=== PATIENT | female | born 1975 | race Two or more races ===

== ENCOUNTER 2016-06-08 12:51 | Emergency (ER) | payer SELFPAY ==
[2016-06-08 13:08] VITALS: BP 131/80; PULSE 77; TEMP 98.5; BMI 30.7
--- NOTE | 2016-06-08 14:35 | PDOC ---
History of Present Illness - General Chief Complaint: Laceration Stated Complaint: LACERATION Time Seen by Provider: 06/08/16 13:42 History Source: Patient Exam Limitations: No Limitations - History of Present Illness Initial Comments: CHIEF COMPLAINT: 40 y/o afebrile female with no significant PMH c/o right face pain after sustaining a trauma at work today. HISTORY OF PRESENT ILLNESS: The patient states she was accidentally hit in the face with a metal object at work today. She sustained a small cut to the right side of her face. She denies LOC, ROQUE, neck pain, dizziness, changes in vision/ hearing, n/v/d, Cp, SOB, and all other symptoms. She states she is not up to date on tetanus. She also states she cleaned the area with the cut with soap and water. Vital signs on arrival are within normal limits. REVIEW OF SYSTEMS: GENERAL/CONSTITUTIONAL: No fever/chills. No weakness. No weight change. HEAD, EYES, EARS, NOSE AND THROAT: No change in vision. No ear pain or discharge. No sore throat. SKIN: No rash or easy bruising. cut to right side of face. NEUROLOGIC: No headache, vertigo, loss of consciousness, or loss of sensation. PHYSICAL EXAM: GENERAL: The patient is awake, alert, and fully oriented, in no acute distress. She is well appearing and ambulatory. HEAD: Normal with no signs of trauma. No hematomas. FACE: Minimal swelling lateral to right eye with 0.5cm linear abrasion with closed margins and no active bleeding. NECK: No midline cervical spine TTP or step offs. Full flexion and extension of neck without pain. EYES: Pupils equal, round and reactive to light, extraocular movements intact, sclera anicteric, conjunctiva clear. No nystagmus. No ptosis or proptosis. No orbital swelling. No TTP or crepitus to orbits. EXTREMITIES: Normal range of motion, no edema. NEUROLOGICAL: Normal speech, normal gait. Normal finger to nose. Normal rapid alternating movements. A&O x 3. SKIN: Warm, Dry, normal turgor, no rashes or lesions noted. Past History - Past Medical History Allergies/Adverse Reactions: Allergies Allergy/AdvReac Type Severity Reaction Status Date / Time latex Allergy Verified 06/08/16 13:05 Home Medications: Ambulatory Orders NK [No Known Home Medication] 06/08/16 Asthma: Yes - Surgical History Abdominal Surgery: (TUBAL LIGATION,HERNIA REAPR X2,LAP BAND) Cholecystectomy: Yes - Psycho/Social/Smoking Cessation Hx Suicidal Ideation: No Smoking History: Current some day smoker Number of Cigarettes Smoked Daily: 0 Information on smoking cessation initiated: No Hx Alcohol Use: No Drug/Substance Use Hx: No *Physical Exam - Vital Signs Last Vital Signs Temp Pulse Resp BP Pulse Ox 98.5 F 77 16 131/80 100 06/08/16 13:06 06/08/16 13:06 06/08/16 13:06 06/08/16 13:06 06/08/16 13:06 Medical Decision Making - Medical Decision Making A/P: 40 y/o female with abrasion to right face after work accident. Plan is as follows: 1. PO tylenol 2. tetanus Suggested the patient continue taking tylenol or motrin for pain at home. Suggested she apply ice to the affected area, follow up with her doctor and return to the ER with any worsening or concerning symptoms The patient verbalizes understanding of all instructions, has no further questions and is awaiting discharge. *DC/Admit/Observation/Transfer Diagnosis at time of Disposition: Facial trauma Qualifiers: Encounter type: initial encounter Qualified Code(s): S09.93XA - Unspecified injury of face, initial encounter - Discharge Dispostion Disposition: HOME Condition at time of disposition: Good - Patient Instructions Printed Discharge Instructions: DI for Closed Head Injury Additional Instructions: Discharge Instructions: -You received a tetanus shot today; it is good for 10 years -Take tylenol or motrin for pain if needed -Apply ice to the affected are for swelling -Return to the ER immediately with any worsening or concerning symptoms Print Language: GUINEAN - Post Discharge Activity Work/School Note: Back to Work
[2016-06-08] MEDS ORDERED: TETANUS AND DIPHTHERIA TOXOID 0.5 ML DISP.SYRIN IM ONE (14:49)
[2016-06-08] MEDS ORDERED: ACETAMINOPHEN 325 MG TABLET (FP) PO ONE (14:49)
[2016-06-08] MEDS ORDERED: ACETAMINOPHEN 325 MG TABLET (FP) ONE (14:50)
[2016-06-08] MEDS ORDERED: DIPHTH,PERTUSS(ACELL),TET 0.5 ML DISP.SYRIN IM ONE (14:59)
== END 2016-06-08 15:16 | disposition home or self-care (01) ==
LOC: JERFT 12:51
PROC: 3E0234Z Introduction of Serum, Toxoid and Vaccine into Muscle, Percutaneous Approach (ICD-10-PCS; principal; 2016-06-08)
DX: S00.81XA Abrasion of other part of head, initial encounter (principal); W22.8XXA Striking against or struck by other objects, initial encounter; Y93.89 Activity, other specified; Y92.511 Restaurant or cafe as the place of occurrence of the external cause; Y99.0 Civilian activity done for income or pay
CPT/HCPCS: 90715; 99281-25

== ENCOUNTER 2016-10-31 07:57 | Emergency (ER) | payer OTHER ==
[2016-10-31 08:03] VITALS: BP 153/90; PULSE 74; TEMP 98.4; BMI 30.5
[2016-10-31] MEDS ORDERED: ACETAMINOPHEN 500 MG TABLET (FP) PO ONE (08:36)
[2016-10-31] MEDS ORDERED: ACETAMINOPHEN 500 MG TABLET (FP) ONE (08:41)
--- NOTE | 2016-10-31 08:49 | PDOC ---
History of Present Illness - General Chief Complaint: Pain Stated Complaint: PAIN TO FACE AND EAR Time Seen by Provider: 10/31/16 08:30 History Source: Patient Exam Limitations: No Limitations - History of Present Illness Initial Comments: 10/31/16 08:52 My chief complaint: Left ear pain left nasal congestion, with postnasal drip and left-sided sore throat History of present illness: Patient is a 41-year-old female with a history of asthma and migraines here today complaining of left-sided ear pain and sore throat and left-sided nasal congestion with postnasal drip for the last 3-4 days. Patient denies any fever. Patient denies any difficulty swallowing or breathing. Patient denies any recent travel. Patient reports being around others that have had upper respiratory infections. Timing/Duration: intermittent Severity: moderate Associated Symptoms: reports: other (left ear, nasal congestion, sore throat left sided, post nasal drip) Past History - Past Medical History Allergies/Adverse Reactions: Allergies Allergy/AdvReac Type Severity Reaction Status Date / Time latex Allergy Verified 10/31/16 08:00 Home Medications: Ambulatory Orders Fexofenadine HCl [Faviola Allergy] 180 mg PO DAILY #7 tablet 10/31/16 Fluticasone Prop 0.05% Nasal [Flonase -] 2 spray NS DAILY #1 spray.pump Asthma: Yes Other medical history: migraines - Surgical History Abdominal Surgery: (TUBAL LIGATION,HERNIA REAPR X2,LAP BAND) Cholecystectomy: Yes - Suicide/Smoking/Psychosocial Hx Anxiety: No Suicidal Ideation: No Smoking History: Never smoked Have you smoked in the past 12 months: No Number of Cigarettes Smoked Daily: 0 Information on smoking cessation initiated: No Hx Alcohol Use: No Drug/Substance Use Hx: No Substance Use Type: None Review of Systems - Review of Systems Able to Perform ROS?: Yes Constitutional: No: Symptoms Reported HEENTM: Yes: Ear Pain (left sided n), Nose Congestion (with post nasal drip), Throat Pain (left sided ) Respiratory: No: Symptoms reported Cardiac (ROS): No: Symptoms Reported ABD/GI: No: Symptoms Reported Musculoskeletal: No: Symptoms Reported Integumentary: No: Symptoms Reported *Physical Exam - Vital Signs Last Vital Signs Temp Pulse Resp BP Pulse Ox 98.4 F 74 18 153/90 100 10/31/16 08:00 10/31/16 08:00 10/31/16 08:00 10/31/16 08:00 10/31/16 08:00 - Physical Exam General Appearance: Yes: Appropriately Dressed HEENT: positive: TMs Normal, Pharyngeal Erythema, Tonsillar Erythema (with no uvular deviation ), Nasal Congestion. negative: Tonsillar Exudate, Rhinorrhea, Sinus Tenderness Neck: positive: Lymphadenopathy (L). negative: Lymphadenopathy (R) Respiratory/Chest: positive: Lungs Clear, Normal Breath Sounds. negative: Chest Tender, Respiratory Distress Cardiovascular: positive: Regular Rhythm, Regular Rate, S1, S2 Integumentary: positive: Normal Color Neurologic: positive: Alert, Normal Response, Responsive ED Treatment Course - Medications Given in the ED: ED Medications Discontinued Medications Generic Name Dose Route Start Last Admin Trade Name Freq PRN Reason Stop Dose Admin Acetaminophen 1,000 mg 10/31/16 08:36 10/31/16 08:44 Tylenol - PO 10/31/16 08:37 1,000 mg ONCE ONE Administration Medical Decision Making - Medical Decision Making 10/31/16 08:55 Patient is a 41-year-old female with a history of asthma and migraines here today complaining of left-sided ear pain and sore throat and left-sided nasal congestion with postnasal drip for the last 3-4 days. Patient denies any fever. Patient denies any difficulty swallowing or breathing. Patient denies any recent travel. Patient reports being around others that have had upper respiratory infections. rule out strep throat pharyngitis or tonsillitis Nasal congestion with post nasal drip Plan: Throat C&S negative Acetaminophen 1000 mg po now faviola 180 mg po daily for 7 days flonase 2 srays left nostril daily 10/31/16 09:24 10/31/16 10:02 *DC/Admit/Observation/Transfer Diagnosis at time of Disposition: Post-nasal drip, Nasal congestion Pharyngitis Qualifiers: Pharyngitis/tonsillitis etiology: unspecified etiology Qualified Code(s): J02.9 - Acute pharyngitis, unspecified - Discharge Dispostion Disposition: HOME Condition at time of disposition: Stable - Prescriptions Prescriptions: Fexofenadine HCl [Faviola Allergy] 180 mg PO DAILY #7 tablet - Patient Instructions Additional Instructions: Drink A lot a fluids and rest Follow-up with your primary care provider within the next few days Take acetaminophen or ibuprofen as needed as directed by pricing supervisor for pain Return to emergency room if symptoms worsen or new symptoms develop Patient voiced understanding of discharge instructions and all questions were answered And thank you for choosing [facility] for your medical needs
== END 2016-10-31 10:10 | disposition home or self-care (01) ==
LOC: JERFT 07:57
DX: J02.9 Acute pharyngitis, unspecified (principal)
CPT/HCPCS: 87070; 87430; 99281-25

== ENCOUNTER 2016-11-25 21:56 | Emergency (ER) | payer SELFPAY ==
[2016-11-25 22:21] VITALS: TEMP 98.5; BMI 31.5
[2016-11-26 03:11] LABS: URINE APPEARANCE SLCLOUDY; URINE BILIRUBIN NEGATIVE (NEGATIVE); URINE BLOOD 2+ (NEGATIVE); URINE COLOR YELLOW; URINE GLUCOSE (UA) NEGATIVE (NEGATIVE); URINE KETONE TRACE (NEGATIVE); URINE NITRITE NEGATIVE (NEGATIVE); URINE PROTEIN NEGATIVE (NEGATIVE); URINE UROBILINOGEN NEGATIVE mg/dL (0.2-1.0)
[2016-11-26 03:18] LABS: URINE MUCUS RARE; URINE RBC 43 /hpf (0-3)
--- NOTE | 2016-11-26 03:21 | PDOC ---
History of Present Illness - General Chief Complaint: Pain, Acute Stated Complaint: PAIN Time Seen by Provider: 11/26/16 02:03 - History of Present Illness Initial Comments: 11/26/16 03:15 CHIEF COMPLAINT: flank pain HISTORY OF PRESENT ILLNESS: 41 year old female with PMH of kidney stones, asthma and migraines presents with right flank and stomach pain x 1 day. Reports associated urinary frequency and urgency, nausea and one episode of dry heaving. Reports she took ibuprofen at around 19:00 today without relief. LMP . Denies fever, chills, burning on urination, diarrhea, and history of UTIs PAST MEDICAL HISTORY: Asthma and migraine headaches FAMILY HISTORY: Denies SURGICAL HISTORY: Denies ALLERGIES: Seasonal allergies. No known drug allergies REVIEW OF SYSTEMS General/Constitutional: Denies fever or chills. Denies weakness, weight change. Cardiovascular: Denies chest pain or shortness of breath. Respiratory: Denies cough, wheezing, or hemoptysis. Gastrointestinal: Reports nausea and one episode of dry heaving. Denies diarrhea or constipation. Denies rectal bleeding. Genitourinary: Reports urinary frequency and urgency. Denies dysuria. Musculoskeletal: Reports right flank pain. Denies joint or muscle swelling or pain. Denies neck pain. Allergic/Immunologic: Denies hives or skin allergy. Denies latex allergy. PHYSICAL EXAM General Appearance: Patient grimaces upon movement, moves slowly. Is appropriately dressed. No apparent intoxication. Respiratory/Chest: Lungs CTAB. No shortness of breath, chest tenderness, respiratory distress, accessory muscle use. No crackles, rales, rhonchi, stridor , wheezing, dullness Cardiovascular: RRR. S1, S2. No JVD, murmur, bradycardia, tachycardia. Gastrointestinal/Abdominal: Suprapubic tenderness. Normal bowel sounds. Abdomen soft, non-distended. No rebound tenderness. No organomegaly, pulsatile mass, guarding, hernia, hepatomegaly, splenomegaly. Musculoskeletal/Extremities: Right CVA tenderness. Normal inspection. FROM of all extremities, normal capillary refill. Pelvis Stable. No tenderness to extremities, pedal edema, swelling, erythema or deformity. Integumentary: Appropriate color, dry, warm. No cyanosis, erythema, jaundice or rash Neurologic: Fully oriented, alert. Appropriate mood/affect. Motor strength 5/5. Past History - Past Medical History Allergies/Adverse Reactions: Allergies Allergy/AdvReac Type Severity Reaction Status Date / Time latex Allergy Verified 11/25/16 22:17 Home Medications: Ambulatory Orders Fexofenadine HCl [Faviola Allergy] 180 mg PO DAILY #7 tablet 10/31/16 Fluticasone Prop 0.05% Nasal [Flonase -] 2 spray NS DAILY #1 spray.pump Tamsulosin HCl [Flomax] 0.4 mg PO DAILY #14 capsule 11/26/16 Asthma: Yes Other medical history: Migraines, kidney stones - Surgical History Abdominal Surgery: (TUBAL LIGATION,HERNIA REAPR X2,LAP BAND) Cholecystectomy: Yes - Suicide/Smoking/Psychosocial Hx Smoking History: Never smoked Have you smoked in the past 12 months: No Number of Cigarettes Smoked Daily: 0 Information on smoking cessation initiated: No Hx Alcohol Use: No Drug/Substance Use Hx: No Substance Use Type: None *Physical Exam - Vital Signs Last Vital Signs Temp Pulse Resp BP Pulse Ox 98.5 F 71 18 182/113 100 11/25/16 22:17 11/25/16 22:17 11/25/16 22:17 11/25/16 22:17 11/25/16 22:17 ED Treatment Course - ADDITIONAL ORDERS Additional order review: Laboratory Results 11/26/16 02:15 Urine HCG, Qual Negative Medical Decision Making - Medical Decision Making 11/26/16 03:57 41 year old female with PMH of kidney stones, asthma and migraines presents with right flank and stomach pain x 1 day. -UA, UCx, Upreg -Spiral CT 11/26/16 03:58 Laboratory Tests 11/26/16 11/26/16 02:15 02:15 Urine Blood 2+ H Urine RBC 43 Urine HCG, Qual Negative 11/26/16 06:33 CT positive for 5 mm ureteral stone with mild to moderate right hydronephrosis and perinephric inflammation secondary to 5 mm proximal to mid right uretal stone. *DC/Admit/Observation/Transfer Diagnosis at time of Disposition: Calculus of kidney - Discharge Dispostion Disposition: HOME Condition at time of disposition: Improved Admit: No - Prescriptions Prescriptions: Tamsulosin HCl [Flomax] 0.4 mg PO DAILY #14 capsule - Referrals Referrals: Joe Nunn MD [Staff Physician] - - Patient Instructions Printed Discharge Instructions: DI for Kidney Stones Additional Instructions: Please take medication as prescribed. Follow up with urology this week for further evaluation of your stones. If you develop any new pain, vomiting, fever , chills, or any new or worsening symptoms, please return to the ER.
[2016-11-26] MEDS ORDERED: KETOROLAC TROMETHAMINE 60 MG/2 ML VIAL IM ONE (03:42)
[2016-11-26] MEDS ORDERED: KETOROLAC TROMETHAMINE 60 MG/2 ML VIAL ONE (04:27)
[2016-11-26 05:56] VITALS: BP 149/84; PULSE 66
[2016-11-26] MEDS ORDERED: TAMSULOSIN HCL 0.4 MG CAP.ER.24H (FP) PO ONE (06:32)
[2016-11-26] MEDS ORDERED: TAMSULOSIN HCL 0.4 MG CAP.ER.24H (FP) ONE (06:45)
[2016-11-26 12:23] LABS: URINE LEUK ESTERASE Negative (NEGATIVE)
[2016-11-29 11:01] LABS: URINE WBC 2 /hpf (3-5)
== END 2016-11-26 07:07 | disposition home or self-care (01) ==
LOC: JER 21:56
PROC: 3E0233Z Introduction of Anti-inflammatory into Muscle, Percutaneous Approach (ICD-10-PCS; principal; 2016-11-25)
DX: N13.2 Hydronephrosis with renal and ureteral calculous obstruction (principal)
CPT/HCPCS: 74176; 81003; 81015; 84703; 87086; 99281-25; 99282-25

== ENCOUNTER 2017-01-09 11:34 | Emergency (ER) | payer SELFPAY ==
[2017-01-09 11:40] VITALS: BP 138/92; PULSE 79; TEMP 98.8; BMI 31.5
[2017-01-09 12:36] LABS: URINE APPEARANCE SLCLOUDY; URINE BILIRUBIN NEGATIVE (NEGATIVE); URINE BLOOD NEGATIVE (NEGATIVE); URINE COLOR DKYELLOW; URINE GLUCOSE (UA) NEGATIVE (NEGATIVE); URINE KETONE TRACE (NEGATIVE); URINE NITRITE NEGATIVE (NEGATIVE); URINE PROTEIN 1+ (NEGATIVE); URINE UROBILINOGEN NEGATIVE mg/dL (0.2-1.0)
--- NOTE | 2017-01-09 12:42 | PDOC ---
History of Present Illness - General Chief Complaint: Urinary Problem Stated Complaint: Wants to R/O UTI Time Seen by Provider: 01/09/17 12:21 History Source: Patient Exam Limitations: No Limitations - History of Present Illness Travel History: No Initial Comments: 01/09/17 12:33 Patient here with complaints of pain, frequency, urinating small amounts with urine 2 days. States is progressively become worse and was concerned about possible kidney stone. States passed kidney stone one month ago however feels that this pain is much different in its only suprapubic pain. Denies vaginal drainage, denies any problems with bowel, denies any back pain or fevers. Timing/Duration: reports: getting worse Quality: reports: mild Abdominal Pain Onset Location: reports: suprapubic Pain Radiation: reports: no radiation Past History - Travel Traveled outside of the country in the last 30 days: No Close contact w/someone who was outside of country & ill: No - Past Medical History Allergies/Adverse Reactions: Allergies Allergy/AdvReac Type Severity Reaction Status Date / Time latex Allergy Verified 01/09/17 11:40 Home Medications: Ambulatory Orders Sulfamethoxazole/Trimethoprim [Bactrim Ds -] 1 tab PO BID #6 tablet 01/09/17 Asthma: Yes COPD: No Kidney Stones: Yes - Surgical History Abdominal Surgery: (TUBAL LIGATION,HERNIA REAPR X2,LAP BAND) Cholecystectomy: Yes - Suicide/Smoking/Psychosocial Hx Smoking History: Never smoked Have you smoked in the past 12 months: No Number of Cigarettes Smoked Daily: 0 Information on smoking cessation initiated: No Hx Alcohol Use: No Drug/Substance Use Hx: No Substance Use Type: None Review of Systems - Review of Systems Able to Perform ROS?: Yes Is the patient limited Japanese proficient: Yes Constitutional: Yes: Symptoms Reported, See HPI, Chills, Fever, Malaise HEENTM: Yes: See HPI. No: Symptoms Reported Respiratory: No: Symptoms reported Cardiac (ROS): No: Symptoms Reported ABD/GI: Yes: Symptoms Reported, See HPI, Nausea : Yes: Symptoms Reported, See HPI, Burning, Dysuria, Frequency. No: Discharge , Hematuria Neurological: Yes: Symptoms reported All Other Systems: Reviewed and Negative *Physical Exam - Vital Signs Last Vital Signs Temp Pulse Resp BP Pulse Ox 98.8 F 79 19 138/92 100 01/09/17 11:37 01/09/17 11:37 01/09/17 11:37 01/09/17 11:37 01/09/17 11:37 - Physical Exam General Appearance: Yes: Nourished, Appropriately Dressed, Apparent Distress HEENT: positive: SAMANTHA, Normal ENT Inspection, TMs Normal, Pharynx Normal Neck: positive: Tender, Supple Respiratory/Chest: positive: Lungs Clear, Normal Breath Sounds Cardiovascular: positive: Regular Rate Gastrointestinal/Abdominal: positive: Tender, Soft. negative: Guarding, Rebound Extremity: positive: Normal Range of Motion Integumentary: positive: Normal Color, Dry, Warm Neurologic: positive: oxyacetylene welder II-XII NML intact, Fully Oriented, Alert, Normal Mood/ Affect, Normal Response *DC/Admit/Observation/Transfer Diagnosis at time of Disposition: UTI (urinary tract infection) Qualifiers: Urinary tract infection type: acute cystitis Hematuria presence: without hematuria Qualified Code(s): N30.00 - Acute cystitis without hematuria - Discharge Dispostion Disposition: HOME Condition at time of disposition: Stable Admit: No - Referrals - Patient Instructions Printed Discharge Instructions: DI for Urinary Tract Infection (UTI) Additional Instructions: UTI by clinical exam, Urinalysis not evident. Will treat with Bactrim for 3 days and patient understands the culture will take 2 days for result. F/U with PMD - Post Discharge Activity Forms/Work/School Notes: Back to Work
[2017-01-09 12:44] LABS: URINE MUCUS MANY; URINE RBC 21 /hpf (0-3); URINE WBC 5 /hpf (3-5)
[2017-01-09] MEDS ORDERED: SULFAMETHOXAZOLE/TRIMETHOPRIM 800MG/160MG D.S. TABLET PO ONE (13:02)
[2017-01-09] MEDS ORDERED: SULFAMETHOXAZOLE/TRIMETHOPRIM 800MG/160MG D.S. TABLET ONE (13:06)
[2017-01-09 17:24] LABS: URINE LEUK ESTERASE Negative (NEGATIVE)
== END 2017-01-09 13:06 | disposition home or self-care (01) ==
LOC: JERFT 11:34
DX: N30.00 Acute cystitis without hematuria (principal); Z87.442 Personal history of urinary calculi
CPT/HCPCS: 81003; 81015; 84703; 87086; 99281-25

== ENCOUNTER 2017-01-12 08:24 | Emergency (ER) | payer SELFPAY ==
[2017-01-12 08:28] VITALS: BMI 31.5
--- NOTE | 2017-01-12 09:42 | PDOC ---
History of Present Illness - General Chief Complaint: Pain Stated Complaint: ABD PAIN Time Seen by Provider: 01/12/17 09:03 History Source: Patient Exam Limitations: No Limitations - History of Present Illness Initial Comments: 01/12/17 09:45 41-year-old female presents to the ED with continual mid suprapubic pressure worsened with urination and movement. Patient states was seen here 3 days ago and was placed on antibiotics for urinary complaints which she completed. Patient denies fever, chills, nausea, diarrhea, constipation, rash, abdominal distention, vaginal discharge, vaginal bleeding, or irregular menses. Patient states history of BTL but does not have a COMPLAINT OPERATOR here since moving from [place]. Patient does state history of ovarian cyst in the past but denies history of fibroids or endometriosis. Timing/Duration: reports: intermittent Quality: reports: moderate, cramping, fullness Abdominal Pain Onset Location: reports: suprapubic Pain Radiation: reports: no radiation Aggravating Factors: improves with: Movement, Voiding Alleviating Factors: improves with: None Past History - Travel Traveled outside of the country in the last 30 days: No Close contact w/someone who was outside of country & ill: No - Past Medical History Allergies/Adverse Reactions: Allergies Allergy/AdvReac Type Severity Reaction Status Date / Time latex Allergy Verified 01/12/17 08:28 Home Medications: Ambulatory Orders Sulfamethoxazole/Trimethoprim [Bactrim Ds -] 1 tab PO BID #6 tablet 01/09/17 Asthma: Yes COPD: No DVT: No Kidney Stones: Yes - Surgical History Abdominal Surgery: Yes (TUBAL LIGATION,HERNIA REAPR X2,LAP BAND) Cholecystectomy: Yes - Suicide/Smoking/Psychosocial Hx Smoking History: Never smoked Have you smoked in the past 12 months: No Number of Cigarettes Smoked Daily: 0 Information on smoking cessation initiated: No Hx Alcohol Use: No Drug/Substance Use Hx: No Substance Use Type: None Patient Lives Alone: No Lives with/in: spouse/SO Review of Systems - Review of Systems Able to Perform ROS?: Yes Constitutional: No: Symptoms Reported HEENTM: No: Symptoms Reported Respiratory: No: Symptoms reported Cardiac (ROS): No: Symptoms Reported ABD/GI: Yes: Abdominal cramping : Yes: Dysuria, Frequency. No: Flank Pain, Hematuria Musculoskeletal: No: Symptoms Reported Integumentary: No: Symptoms Reported Neurological: No: Headache, Weakness *Physical Exam - Vital Signs Last Vital Signs Temp Pulse Resp BP Pulse Ox 98.8 F 75 18 147/92 100 01/12/17 08:25 01/12/17 08:25 01/12/17 08:25 01/12/17 08:25 01/12/17 08:25 - Physical Exam General Appearance: Yes: Nourished, Appropriately Dressed. No: Apparent Distress HEENT: positive: EOMI, SAMANTHA. negative: Pale Conjunctivae Neck: positive: Supple Respiratory/Chest: positive: Lungs Clear, Normal Breath Sounds. negative: Respiratory Distress, Accessory Muscle Use Cardiovascular: positive: Regular Rhythm, Regular Rate. negative: Murmur Gastrointestinal/Abdominal: positive: Soft, Tenderness (mid suprapubic and right suprapubic. no rlq tenderness) Musculoskeletal: negative: CVA Tenderness Extremity: positive: Normal Capillary Refill Integumentary: positive: Normal Color, Warm, Moist Neurologic: positive: Motor Strength 5/5 (ambulatory) ED Treatment Course - RADIOLOGY Radiology Studies Ordered: Category Date Time Status PELVIC / BLADDER US [US] Stat Ultrasound 01/12/17 09:26 Ordered TRANSVAGINAL ULTRASOUND US [US] Stat Ultrasound 01/12/17 09:26 Ordered Medical Decision Making - Medical Decision Making 01/12/17 09:49 Pt with urinary frequency and dysuria alondg with suprapubic pain. Pt placed on bactrim 3 days ago and completed. UA and ucx -/ on exam pt with rt suprapubic pain. VSS. - mcburneys or rlq tenderness. Pt ordered ror repeat ua ucx, tylenol and tv /pelvic u/s 01/12/17 12:39 Laboratory Tests 01/12/17 09:26 Urine Glucose (UA) Negative Urine Blood 1+ H Urine Nitrite Negative Ur Leukocyte Esterase Pending Urine WBC (Auto) 2 Urine RBC (Auto) 6 Ultrasound shows a normal uterus and endometrial stripe measuring 4.5 mm. There is a 1 cm nabothian cyst is present in the cervix. There is no free fluid in the cul-de-sac. The right ovary is measuring 3 x 1.9 with a couple small cyst follicles the largest measuring 1 x 0.7 with normal vascular flow. The left ovary has normal vascular flow with small cyst measuring 1 x 0.8 cm. Patient currently menstruating and will be discharged home to continue taking Motrin for discomfort and following up with COMPLAINT OPERATOR as referred. Patient states feeling better after receiving Tylenol *DC/Admit/Observation/Transfer Diagnosis at time of Disposition: Ovarian cyst Qualifiers: Laterality: bilateral Qualified Code(s): N83.201 - Unspecified ovarian cyst, right side - Discharge Dispostion Disposition: HOME Condition at time of disposition: Improved - Referrals Referrals: Giovanna Castro MD [Certified Nurse Resource Management Planner] - August Gaxiola MD [Staff Physician] - - Patient Instructions Printed Discharge Instructions: DI for Ovarian Cyst Additional Instructions: Please take Tylenol for discomfort. Please follow-up with referred WEB CONTENT WRITER and return to ED if symptoms worsen such as fever, vomiting, diarrhea, heavy vaginal bleeding, or vaginal discharge. Drink at least 2 liters of water daily - Post Discharge Activity Forms/Work/School Notes: Back to Work
[2017-01-12 09:47] LABS: URINE APPEARANCE SLCLOUDY; URINE BILIRUBIN NEGATIVE (NEGATIVE); URINE BLOOD 1+ (NEGATIVE); URINE COLOR LTYELLOW; URINE GLUCOSE (UA) NEGATIVE (NEGATIVE); URINE KETONE NEGATIVE (NEGATIVE); URINE NITRITE NEGATIVE (NEGATIVE); URINE PROTEIN NEGATIVE (NEGATIVE); URINE UROBILINOGEN NEGATIVE mg/dL (0.2-1.0)
[2017-01-12] MEDS ORDERED: ACETAMINOPHEN 500 MG TABLET (FP) PO ONE (09:51)
[2017-01-12] MEDS ORDERED: ACETAMINOPHEN 325 MG TABLET (FP) ONE (10:10)
[2017-01-12 11:02] LABS: URINE MUCUS RARE; URINE RBC 6 /hpf (0-3); URINE WBC 2 /hpf (3-5)
--- NOTE | 2017-01-12 12:54 | PDOC ---
*Physical Exam - Vital Signs Last Vital Signs Temp Pulse Resp BP Pulse Ox 98.8 F 75 18 147/92 100 01/12/17 08:25 01/12/17 08:25 01/12/17 08:25 01/12/17 08:25 01/12/17 08:25 ED Treatment Course - ADDITIONAL ORDERS Additional order review: Laboratory Results 01/12/17 09:26 Urine Color Ltyellow Urine Appearance Slcloudy Urine pH 5.0 Ur Specific [place] 1.018 Urine Protein Negative Urine Glucose (UA) Negative Urine Ketones Negative Urine Blood 1+ H Urine Nitrite Negative Urine Bilirubin Negative Urine Urobilinogen Negative Urine WBC (Auto) 2 Urine RBC (Auto) 6 Ur Epithelial Cells Rare Urine Mucus Rare - Medications Given in the ED: ED Medications Discontinued Medications Generic Name Dose Route Start Last Admin Trade Name Freq PRN Reason Stop Dose Admin Acetaminophen 975 mg 01/12/17 09:51 01/12/17 10:05 Tylenol - PO 01/12/17 09:52 975 mg ONCE ONE Administration Medical Decision Making - Medical Decision Making 01/12/17 12:53 Pt seen by the Advanced Practice Provider under my direct supervision Ancillary studies reviewed I agree with plan as outlined by the Advanced Practice Provider *DC/Admit/Observation/Transfer Diagnosis at time of Disposition: Ovarian cyst Qualifiers: Laterality: bilateral Qualified Code(s): N83.201 - Unspecified ovarian cyst, right side - Discharge Dispostion Disposition: HOME Condition at time of disposition: Improved - Referrals Referrals: Giovanna Castro MD [Certified Nurse Day Care Assistant] - - Patient Instructions Printed Discharge Instructions: DI for Ovarian Cyst Additional Instructions: Please take Tylenol for discomfort. Please follow-up with referred [employer]PA[employer]ER and return to ED if symptoms worsen such as fever, vomiting, diarrhea, heavy vaginal bleeding, or vaginal discharge - Post Discharge Activity
[2017-01-12 13:32] VITALS: BP 140/79; PULSE 59; TEMP 97.9
[2017-01-12 17:09] LABS: URINE LEUK ESTERASE Negative (NEGATIVE)
== END 2017-01-12 12:59 | disposition home or self-care (01) ==
LOC: JER 08:24
DX: N83.202 Unspecified ovarian cyst, left side (principal); N83.201 Unspecified ovarian cyst, right side; J45.909 Unspecified asthma, uncomplicated
CPT/HCPCS: 76830-TC; 76856-TC; 81003; 81015; 87086; 99282-25

== ENCOUNTER 2017-10-07 08:13 | Emergency (ER) | payer OTHER ==
[2017-10-07 08:42] VITALS: BP 135/82; PULSE 74; TEMP 98.8; BMI 31.9
--- NOTE | 2017-10-07 09:34 | PDOC ---
History of Present Illness - General Chief Complaint: Pain Stated Complaint: FOOT PAIN Time Seen by Provider: 10/07/17 09:03 History Source: Patient Exam Limitations: No Limitations - History of Present Illness Initial Comments: CHIEF COMPLAINT: 42 y/o afebrile female c/o atraumatic left big toe pain x 4 days. HISTORY OF PRESENT ILLNESS: The patient states this has happened to her in the past but the symptoms normally go away within 1 day. She denies trauma to foot , swelling/streaking of foot, numbness/tingling of foot. She has been taking NSAIDs with little relief. Vital signs on arrival are within normal limits. REVIEW OF SYSTEMS: GENERAL/CONSTITUTIONAL: No fever/chills. No weakness. No weight change. MUSCULOSKELETAL: +left big toe pain. No neck or back pain. SKIN: No rash or easy bruising. NEUROLOGIC: No headache, vertigo, loss of consciousness, or loss of sensation. PHYSICAL EXAM: VITAL_SIGNS: within normal limits GENERAL_APPEARANCE: alert, cooperative, no obvious discomfort. MENTAL_STATUS: speech clear, oriented X 3, responds appropriately to questions. NEURO: motor intact and sensory intact in injured extremity. EXTREMITIES: good pulse in injured extremity. ERythematous left big toe without swelling, streaking, warmth, crepitus or deformities. TTP of PIP joint of left hallux and TTP with ROM. SKIN: warm, dry, good color. Past History - Past Medical History Allergies/Adverse Reactions: Allergies Allergy/AdvReac Type Severity Reaction Status Date / Time latex Allergy Verified 10/07/17 09:09 Home Medications: Ambulatory Orders Indomethacin [Indocin -] 50 mg PO TID #21 capsule 10/07/17 Asthma: Yes COPD: No DVT: No Kidney Stones: Yes - Surgical History Abdominal Surgery: Yes (TUBAL LIGATION,HERNIA REAPR X2,LAP BAND) Cholecystectomy: Yes - Suicide/Smoking/Psychosocial Hx Smoking History: Never smoked Have you smoked in the past 12 months: No Number of Cigarettes Smoked Daily: 0 Hx Alcohol Use: No Drug/Substance Use Hx: No Substance Use Type: None *Physical Exam - Vital Signs Last Vital Signs Temp Pulse Resp BP Pulse Ox 98.8 F 74 16 135/82 100 10/07/17 08:39 10/07/17 08:39 10/07/17 08:39 10/07/17 08:39 10/07/17 08:39 Medical Decision Making - Medical Decision Making A/P: 42 y/o female with gout attack. The patient had a tubal ligation. Plan is to discharge to home with rx for indomethicin. Patient instructed to ice foot and to avoid taking NSAIDs while taking indomethicin. Suggested she f/u with Dr. Jean and return to the ER with any worsening or concerning symptoms. The patient verbalizes understanding of all instructions, has no further questions and is awaiting discharge. *DC/Admit/Observation/Transfer Diagnosis at time of Disposition: Gout Qualifiers: Gout site: toe Gout etiology: unspecified cause Chronicity: acute Laterality: left Qualified Code(s): M10.9 - Gout, unspecified - Discharge Dispostion Disposition: HOME Condition at time of disposition: Good - Referrals Referrals: ON STAFF,NOT [Primary Care Provider] - Marcio Jean MD [Staff Physician] - - Patient Instructions Printed Discharge Instructions: DI for Gout, How To Perform RICE (Rest, Ice, Compress, Elevate) Additional Instructions: Discharge Instructions: -You have gout -The symptoms can come and go and you can get flare ups at any time -A prescription for medicine has been sent to your pharmacy -Do NOT TAKE MOTRIN, IBUPROFEN, ADVIL OR ALEVE while taking prescription medications -Follow up with Dr. Jean within 1 week Instrucciones de descarga: -Tienes gota -Los sntomas pueden aparecer y desaparecer y puede tener brotes en cualquier momento -Khadra receta de medicamento obrien sido enviada a [facility] [facility] NO TOMEN MOTRIN, IBUPROFEN, ADVIL O ALEVE mientras gurmeet medicamentos recetados -Siga con el Dr. Jean dentro de 1 semana Print Language: JAPANESE - Post Discharge Activity
== END 2017-10-07 09:48 | disposition home or self-care (01) ==
LOC: JER 08:13 → JERFT 08:13
DX: M10.9 Gout, unspecified (principal)
CPT/HCPCS: 99281-25

== ENCOUNTER 2019-01-06 08:21 | Emergency (ER) | payer OTHER ==
[2019-01-06 08:29] VITALS: BP 162/89; PULSE 70; TEMP 98.1; BMI 30.9
--- NOTE | 2019-01-06 08:43 | PDOC ---
History of Present Illness - General Chief Complaint: Pain Stated Complaint: LT FOOT PAIN Time Seen by Provider: 01/06/19 08:28 History Source: Patient Exam Limitations: No Limitations Past History - Past Medical History Allergies/Adverse Reactions: Allergies Allergy/AdvReac Type Severity Reaction Status Date / Time latex Allergy Verified 10/07/17 09:09 Home Medications: Ambulatory Orders Propranolol HCl 40 mg PO DAILY 01/06/19 Asthma: Yes COPD: No DVT: No HTN: Yes Kidney Stones: Yes - Surgical History Abdominal Surgery: Yes (TUBAL LIGATION,HERNIA REAPR X2,LAP BAND) Cholecystectomy: Yes - Psycho Social/Smoking Cessation Hx Smoking History: Never smoked Have you smoked in the past 12 months: No Number of Cigarettes Smoked Daily: 0 Hx Alcohol Use: No Drug/Substance Use Hx: No Substance Use Type: None *Physical Exam - Vital Signs Last Vital Signs Temp Pulse Resp BP Pulse Ox 98.1 F 70 16 162/89 99 01/06/19 08:22 01/06/19 08:22 01/06/19 08:22 01/06/19 08:22 01/06/19 08:22 - Physical Exam General Appearance: No: Apparent Distress Vascular Pulses: Doralis-Pedis (L): 2+ Extremity: positive: Other (Mild TTP along L anterior ankle, no significant swelling or deformity noted, no effusion, slight pain with moving ankle, no erythema, no change in skin color) Integumentary: positive: Normal Color. negative: Swelling, Ecchymosis, Bruising Neurologic: positive: Alert, Normal Mood/Affect Medical Decision Making - Medical Decision Making 43 y/o F hx of HTN, asthma, migraines presents with L anterior ankle pain x 4 days, gradually getting worse. Denies trauma, possibly twisting it, fever, redness. Patient denies playing any sports, lifting weights; states she stays at home PE not suspicious for fracture, cellulitis, gout Possibly tendonitis? L ankle anjum-wrapped, which provided patient comfort patient did not want pain meds will also refer to podiatry for further eval 01/06/19 08:40 Discharge - Discharge Information Problems reviewed: Yes Clinical Impression/Diagnosis: Ankle pain Qualifiers: Chronicity: acute Laterality: left Qualified Code(s): M25.572 - Pain in left ankle and joints of left foot Condition: Stable Disposition: HOME - Admission No - Additional Discharge Information Prescription Drug Monitoring Program (I-STOP) results: I-STOP not reviewed - Follow up/Referral Referrals: Aden Cool MD [Staff Physician] - 2 Days - Patient Discharge Instructions Patient Printed Discharge Instructions: DI for Ankle Pain Additional Instructions: Thank you for choosing [facility]. It was a pleasure taking care of you. You may take Motrin 600 mg every 6 hours by mouth as needed for mild to moderate pain. Take Motrin with food. You were referred to podiatry for further evaluation Return to the Emergency Department if your symptoms worsen or persist, you have fever, increased swelling, redness, open wound or other concerning symptoms. - Post Discharge Activity
== END 2019-01-06 08:48 | disposition home or self-care (01) ==
LOC: JER 08:21 → JERFT 08:21
DX: M25.572 Pain in left ankle and joints of left foot (principal); I10 Essential (primary) hypertension; J45.909 Unspecified asthma, uncomplicated; G43.909 Migraine, unspecified, not intractable, without status migrainosus; Z98.51 Tubal ligation status; Z87.442 Personal history of urinary calculi; Z91.040 Latex allergy status
CPT/HCPCS: 99281-25

== ENCOUNTER 2019-03-21 10:02 | Emergency (ER) | payer OTHER ==
[2019-03-21 10:26] VITALS: BP 105/76; PULSE 83; TEMP 99.4; BMI 29.5
--- NOTE | 2019-03-21 11:33 | PDOC ---
History of Present Illness - General Chief Complaint: Cold Symptoms Stated Complaint: FLU LIKE SYMPTOMS Time Seen by Provider: 03/21/19 11:31 History Source: Patient - History of Present Illness Initial Comments: 03/21/19 11:39 Chief complaint: Flu symptoms Patient 43-year-old female with no significant medical conditions who states that Monday night she started getting chills, cough, sore throat, runny nose. Throat does not hurt now. But she feels sick. Patient does not appear in any distress. Patient got flu shot. GENERAL/CONSTITUTIONAL: + fever, weakness. dizziness HEAD, EYES, EARS, NOSE AND THROAT: No change in vision. + Runny nose, no ear pain or discharge. No sore throat. CARDIOVASCULAR: No chest pain RESPIRATORY: No shortness of breath or cough GASTROINTESTINAL: No pain, nausea, vomiting, diarrhea or constipation GENITOURINARY: No dysuria MUSCULOSKELETAL: No neck or back pain SKIN: No rash NEUROLOGIC: No headache, vertigo, loss of consciousness, or loss of sensation. GENERAL: The patient is awake, alert, and fully oriented, in no acute distress. HEAD: Normal with no signs of trauma. EYES: Pupils equal, round and reactive to light, sclera anicteric, conjunctiva clear. ENT: pharynx: no erythema, no exudate, uvula midline NECK: supple CHEST: clear, nontender, rr ABD: soft, nontender BACK: no tenderness or signs of injury EXTREMITIES: Normal range of motion, no edema. NEUROLOGICAL: Normal speech, normal gait. SKIN: Warm, Dry Past History - Past Medical History Allergies/Adverse Reactions: Allergies Allergy/AdvReac Type Severity Reaction Status Date / Time latex Allergy Verified 10/07/17 09:09 Home Medications: Ambulatory Orders Propranolol HCl 40 mg PO DAILY 01/06/19 Oseltamivir Phosphate [Tamiflu] 75 mg PO BID #10 capsule 03/21/19 Asthma: Yes COPD: No DVT: No HTN: Yes Kidney Stones: Yes - Surgical History Abdominal Surgery: Yes (TUBAL LIGATION,HERNIA REAPR X2,LAP BAND) Cholecystectomy: Yes - Immunization History Immunization Up to Date: No - Psycho Social/Smoking Cessation Hx Smoking History: Never smoked Have you smoked in the past 12 months: No Number of Cigarettes Smoked Daily: 0 Information on smoking cessation initiated: No Hx Alcohol Use: No Drug/Substance Use Hx: No Substance Use Type: None *Physical Exam - Vital Signs Last Vital Signs Temp Pulse Resp BP Pulse Ox 99.4 F 83 16 105/76 99 03/21/19 10:24 03/21/19 10:24 03/21/19 10:24 03/21/19 10:24 03/21/19 10:24 Medical Decision Making - Medical Decision Making 03/21/19 11:41 43-year-old female without any significant medical conditions with flulike symptoms since Monday night. Patient does not need any further work-up as symptoms are consistent with flu or viral-like illness. No testing indicated. Patient did have flu shot. Discussed with patient, patient would like to take Tamiflu. Discussed issues, findings, results, applicable medications and treatments and follow-up. All these were understood and all questions were answered Discharge - Discharge Information Problems reviewed: Yes Clinical Impression/Diagnosis: Flu-like symptoms Condition: Stable Disposition: HOME - Admission No - Additional Discharge Information Prescriptions: Oseltamivir Phosphate [Tamiflu] 75 mg PO BID #10 capsule - Follow up/Referral Referrals: Kim Villavicencio [Primary Care Provider] - - Patient Discharge Instructions Patient Printed Discharge Instructions: Influenza Additional Instructions: Drink 2-3 L of water daily Take Tamiflu as directed until finished. If you start to vomit or makes you feel sick, stop it Take Tylenol 650 mg every 4 hours or Motrin 600 mg every 6 hours for fever and pain Return to the nearest ER if short of breath, unable to swallow or feeling sicker Followup with your doctor in one to 2 days - Post Discharge Activity Work/Back to School Note: Back to Work
== END 2019-03-21 11:51 | disposition home or self-care (01) ==
LOC: JERFT 10:02
DX: J11.1 Influenza due to unidentified influenza virus with other respiratory manifestations (principal); Z91.040 Latex allergy status
CPT/HCPCS: 99282-25

== ENCOUNTER 2019-12-01 08:55 | Emergency (ER) | payer OTHER ==
[2019-12-01 09:02] VITALS: BP 134/89; PULSE 90; TEMP 98.4; BMI 28.7
--- OUTSIDE RECORDS SUMMARY | 2019-12-01 09:18 | XMS ---
:1975 [facility] Organization [facility] Name Relationship Address Phone SHOP RITE [place] [address] NA Unavailable [address] [place] [address] [place] [address] UE Unavailable Unavailable Unavailable UNEMPLOYED Unavailable [address] [place] [address] SEA TURNER [address] [place] [address] Care Team Providers Name Role Phone AsraheelloLexie coronado Katie Unavailable Unavailable Aszalos, Katie Unavailable Unavailable Aszalos, Katie Unavailable Unavailable Aszalos, Katie Unavailable Unavailable Aszalos, Katie Unavailable Unavailable Aszalos, Katie Unavailable Unavailable Aszalos, Katie Unavailable Unavailable Aszalos, Katie Unavailable Unavailable Aszalos, Katie Unavailable Unavailable Rhonda Villa MD Unavailable Unavailable Rhonda Villa MD Unavailable Unavailable Rhonda Villa MD Unavailable Unavailable Rhonda Villa MD Unavailable Unavailable Rhonda Villa MD Unavailable Unavailable Rhonda Villa MD Unavailable Unavailable Rhonda Villa MD Unavailable Unavailable Rhonda Villa MD Unavailable Unavailable Rhonda Villa MD Unavailable Unavailable Rhonda Villa MD Unavailable Unavailable Rhonda Villa MD Unavailable Unavailable Rhonda Villa MD Unavailable Unavailable Rhonda Villa MD Unavailable Unavailable Rhonda Villa MD Unavailable Unavailable Rhonda Villa MD Unavailable Unavailable Esvin Unavailable [phone] Clayton Unavailable Unavailable Clayton Unavailable Unavailable Esha Unavailable [phone] [place] Unavailable [phone] Aszalos, Katie Unavailable Unavailable Aszalos, Katie Unavailable Unavailable Aszalos, Katie Unavailable Unavailable Aszalos, Katie Unavailable Unavailable Aszalos, Katie Unavailable Unavailable Aszalos, Katie Unavailable Unavailable Aszalos, Katie Unavailable Unavailable Aszalos, Katie Unavailable Unavailable Aszalos, Katie Unavailable Unavailable Coloka-Kump, DO Unavailable Unavailable Coloka-Kump, DO Unavailable Unavailable Coloka-Kump, DO Unavailable Unavailable Coloka-Kump, DO Unavailable Unavailable Coloka-Kump, DO Unavailable Unavailable Coloka-Kump, DO Unavailable Unavailable Coloka-Kump, DO Unavailable Unavailable Coloka-Kump, DO Unavailable Unavailable Coloka-Kump, DO Unavailable Unavailable Coloka-Kump, DO Unavailable Unavailable Coloka-Kump, DO Unavailable Unavailable Coloka-Kump, DO Unavailable Unavailable Coloka-Kump, DO Unavailable Unavailable Coloka-Kump, DO Unavailable Unavailable Coloka-Kump, DO Unavailable Unavailable Coloka-Kump, DO Unavailable Unavailable Coloka-Kump, DO Unavailable Unavailable ZUNASSIGNED Unavailable Unavailable ZUNASSIGNED@, Unavailable Unavailable Re-disclosure Warning The records that you are about to access may contain information from federally- assisted alcohol or drug abuse programs. If such information is present, then the following federally mandated warning applies: This information has been disclosed to you from records protected by federal confidentiality rules (42 CFR part 2). The federal rules prohibit you from making any further disclosure of this information unless further disclosure is expressly permitted by the written consent of the person to whom it pertains or as otherwise permitted by 42 CFR part 2. A general authorization for the release of medical or other information is NOT sufficient for this purpose. The Federal rules restrict any use of the information to criminally investigate or prosecute any alcohol or drug abuse patient.The records that you are about to access may contain highly sensitive health information, the redisclosure of which is protected by Article 27-F of the [facility] Public Health law. If you continue you may haveaccess to information: Regarding HIV / AIDS; Provided by facilities licensed or operated by the [facility] Office of Mental Health; or Provided by the [facility] Office for People With Developmental Disabilities. If such information is present, then the following [facility] mandated warning applies: This information has been disclosed to you from confidential records which are protected by state law. State law prohibits you from making any further disclosure of this information without the specific written consent of the person to whom it pertains, or as otherwise permitted by law. Any unauthorized further disclosure in violation of state law may result in a fine or [place] [facility] sentence or both. A general authorization for the release of medical or other information is NOT sufficient authorization for further disclosure. Family History Family Member Family Member Family Member Date of Description Data Source(s) Name Gender Status Status Unknown Female Problem 04/05/2017 NEXTGEN ([facility] (finding) 12:00:00 AM [facility]) Unknown Female Problem 04/05/2017 NEXTGEN ([facility] (finding) 12:00:00 AM [facility]) Encounters Encounter Providers Location Date Indications Data Source(s ) Outpatient Attender: 11/22/2019 [facility] ZUNASSIGNEDAdmi 11:02:00 Medical C enter tter: AM EDT ZUNASSIGNEDRefe rrer: [id number] ZUNASSIGNED@, Outpatient Attender: 11/22/2019 [facility] ZUNASSIGNEDAdmi 10:59:00 Medical C enter tter: AM EDT ZUNASSIGNEDRefe rrer: [id number] ZUNASSIGNED@, Outpatient Attender: [facility] 11/22/2019 [facility] AszalosAdmitter 09:45:00 Medical C enter : Lexie LOPEZ EDT AszalosReferrer : Lexie Melgoza Outpatient Attender: [facility] 11/22/2019 [facility] AszalosAdmitter 09:14:00 Medical C enter : Lexie LOPEZ EDT AszalosReferrer : Lexie Melgoza Outpatient Admitter: 11/22/2019 [facility] [id number] 12:00:00 Medical Center ZUNASSIGNED@,Re AM EDT odom: [id number] ZUNASSIGNED@, Outpatient Attender: 11/21/2019 [facility] ZUNASSIGNEDAdmi 11:01:00 Medical C enter tter: AM EDT ZUNASSIGNEDRefe rrer: [id number] ZUNASSIGNED@, Outpatient Admitter: 11/21/2019 [facility] [id number] 12:00:00 Medical Center ZUNASSIGNED@,Re AM EDT odom: [id number] ZUNASSIGNED@, Outpatient Attender: [facility] MDAdmitter: AM EDT Hallie Villa MDReferrer: Hallie Villa MD OutpatientWell Attender: [facility] 11/07/2019 GALILEA EASLEY ([facility] 09[facility] Daniel Est,40-64years AM EDT - Medical 11/07/2019 Center) 09:27:00 AM EDT Outpatient Attender: 11/07/2019 [facility] 09:11:00 Medical C enter tter: AM EDT ZUNASSIGNEDRefe rrer: [id number] ZUNASSIGNED@, Outpatient Admitter: 11/07/2019 [facility] [id number] 12:00:00 Medical Center ZUNASSIGNED@,Re AM EDT odom: [id number] ZUNASSIGNED@, Attender: [facility] 07/09/2019 NEXT N ([facility] 10:13:00 Daniel AM EDT - Medical 07/09/2019 Center) 10:13:00 AM EDT Attender: [facility] 06/25/2019 NEXT N ([facility] 10:51:00 Daniel AM EDT - Medical 06/25/2019 [place]) 10:51:00 AM EDT Attender: [facility] 06/19/2019 NEXT N ([facility] 04:22:00 Daniel PM EDT - Medical 06/19/2019 [place]) 04:22:00 PM EDT Attender: [facility] 05/30/2019 NEXT N ([facility] 09:38:00 Daniel AM EDT - Medical 05/30/2019 [place]) 09:38:00 AM EDT Attender: [facility] 05/11/2019 NEXTGE N ([facility] 03:41:00 Daniel PM EDT - Medical 05/11/2019 [place]) 03:41:00 PM EDT Outpatient 05/10/2019 [facility] 04:17:00 Medical Center PM EDT Outpatient 05/10/2019 [facility] 12:00:00 Medical Center AM EDT Attender: [facility] 05/09/2019 NEXTGE N ([facility] 03:42:00 Daniel PM EDT - Medical 05/09/2019 [place]) 03:42:00 PM EDT Outpatient Attender: H 05/03/2019 [facility] Charlette 02:14:00 Medical Center Coloka-Kump PM EDT DOAdmitter: Jahvioletta Ana-Kumheather DOReferrer: Charlette Padillaoka-Kump DO OutpatientOFFICE/OUT Attender: [facility] 05/03/2019 NEXTGEN ([facility] PATIENT VISIT, [facility] 02:14:00 Flo hs PM EDT - Medical 05/03/2019 [place]) 02:14:00 PM EDT Outpatient 05/03/2019 [facility] 09:53:00 [facility] AM EDT Outpatient 05/03/2019 [facility] 12:00:00 Medical Center AM EDT Attender: [facility] 05/02/2019 NEXTGE N ([facility] 01:19:00 [facility] EDT - Medical 05/02/2019 [place]) 01:19:00 PM EDT Attender: [facility] 03/20/2019 NEXTGEN ([facility] 02:16:00 [facility] EST - Medical 03/20/2019 [place]) 02:16:00 PM EST Outpatient 03/19/2019 [facility] 04:40:00 [facility] PM EST Outpatient 03/19/2019 [facility] 12:00:00 Medical Center AM EST Attender: [facility] 03/15/2019 NEXTGEN ([facility] 09:36:00 [facility] AM [facility] Medical 03/15/2019 [place]) 09:36:00 AM EST Outpatient 04/26/2018 [facility] 12:00:00 Medical Center AM EDT Immunizations Vaccine Date Status Description Data Source(s) New in 2011. IIV4 11/07/2019 completed Influenza, Injectable, NEXTGEN ([facility] 12:00:00 AM EDT Quadrivalent [facility]) Source: New Immunization Record Medications Medication Brand Start Product Dose Route [facility] Indications Reaction Description Data Name Date Form Instructions Instructions Source(s) Chlorthalid chlort 11/06/ active take 0. 5 NEXTGEN one 25 MG halido 2020 tablet by (Sa int Oral Tablet ne 25 12:00: oral route Daniel chlorthalid mg 00 AM every Medica l one 25 mg tablet EDT evening Cente r) tablet Chlorthalid chlort ORAL active take 1 NEXTGEN one 25 MG halido 2019 {tabl tablet by (S aint Oral Tablet ne 25 12:00: et} oral route Daniel chlorthalid mg 00 AM every Medica l one 25 mg tablet EDT bedtime Cente r) tablet Sertraline sertra 00 ORAL active take 1 N EXTGEN 25 MG Oral line 2019 {tabl tablet by (Sa int Tablet 25 mg 12:00: et} oral route [facility] sertraline tablet 00 AM every day M edical 25 mg EDT for Center) tablet depression and anxiety 120 ACTUAT Floven 00 RESPIR active 120 AC TUAT NEXTGEN Fluticasone t HFA 2019 {puff ATORY Fluticason e ([facility] propionate 110 12:00: } (INHAL propionate Daniel 0.11 mcg/ac 00 AM ATION) 0.11 Medical MG/ACTUAT tuatio EDT MG/ACTUAT Celsa ter) Metered n Metered Dose Dose aeroso Inhaler Inhaler l [Flovent] [Flovent] inhale Flovent HFA r 110 mcg/actuati on aerosol inhaler 200 ACTUAT Ventol 05/02/ active [id number] 3 NEXTGEN Albuterol in HFA 2019 200 ACTUAT (S aint 0.09 90 12:00: Albuterol Daniel MG/ACTUAT mcg/ac 00 AM 0.09 Medical Metered tuatio EDT MG/ACTUAT Cente r) Dose n Metered Dose Inhaler aeroso Inhaler [Ventolin] l [Ventolin] Ventolin inhale HFA 90 r mcg/actuati on aerosol inhaler 120 ACTUAT Floven RESPIR complet 120 A CTUAT NEXTGEN Fluticasone t HFA 2018 {puff ATORY ed Fluticason e (Saint propionate 110 12:00: } (INHAL propionate Daniel 0.11 mcg/ac 00 AM ATION) 0.11 Medical MG/ACTUAT tuatio EDT MG/ACTUAT [facility]elsa ter) Metered n Metered Dose Dose aeroso Inhaler Inhaler l [Flovent] [Flovent] inhale Flovent HFA r 110 mcg/actuati on aerosol inhaler 200 ACTUAT Ventol 04/27/ complet [id number] NEXTGEN Albuterol in HFA 2018 ed 200 ACTUAT (S aint 0.09 90 12:00: Albuterol Daniel MG/ACTUAT mcg/ac 00 AM 0.09 Medical Metered tuatio EDT MG/ACTUAT Cente r) Dose n Metered Dose Inhaler aeroso Inhaler [Ventolin] l [Ventolin] Ventolin inhale HFA 90 r mcg/actuati on aerosol inhaler Propranolol propra 1.00 ORAL complet take 1 N EXTGEN Hydrochlori nolol {tabl ed tablet by ( Saint de 40 MG 40 mg et} oral route 2 Kassidy sephs Oral Tablet tablet times every Medical propranolol day Center) 40 mg tablet Insurance Providers Payer name Policy type Policy ID Covered Covered green party's Policy P bernie / Coverage green party ID relationship to Webb Inf ormation type webb PARESH [id number] SP [id number] 000 HEALTH NON CAP [facility] [id number] 01 [id number] 000 [place]ARE [place] PAR[place] W [id number] 01 [id number] 000 CARE [facility] [id number] 01 [id number] PARESH [id number] SP [id number] 000 HEALTH NON CAP PARESH [id number] 01 [id number] 000 CARE Problems, Conditions, and Diagnoses Code Display Name Description Problem Type Effective Data Dates Source(s) Z71.89 Other specified OTHER SPECIFIED Diagnosis 11/22/2019 Darlyn lima counseling COUNSELING 09:45:00 AM [facility] F32.9 Major depressive MAJOR DEPRESSIVE Diagnosis 11/22/2019 int disorder, single DISORDER, SINGLE 09:45:00 AM Juliano osephs episode, unspecified EPISODE, UNSPECIFIED [facility] F41.9 Anxiety disorder, ANXIETY DISORDER, Diagnosis 11/22/2019 unspecified UNSPECIFIED 09:45:00 AM [facility] I10 Essential (primary) ESSENTIAL (PRIMARY) Diagnosis [facility] hypertension HYPERTENSION 09:45:00 AM [facility] R92.2 Inconclusive INCONCLUSIVE Diagnosis 11/22/2019 [facility] mammogram MAMMOGRAM 09:45:00 AM [facility] Z71.82 Exercise counseling EXERCISE COUNSELING Diagnosis [facility] 09:27:00 AM [facility] Z68.28 Body mass index BODY MASS INDEX Diagnosis 11/07/2019 Darlyn t (BMI) 28.0-28.9, (BMI) 28.0-28.9, 09:27:00 AM [facility] Z11.4 Encounter for ENCOUNTER FOR Diagnosis 11/07/2019 [facility] screening for human SCREENING FOR HUMAN 09:27:0 0 AM [facility] immunodeficiency IMMUNODEFICIENCY EDT Tn dical virus [HIV] VIRUS Center Z11.3 Encounter for ENCNTR SCREEN FOR Diagnosis 11/07/2019 Darlyn t screening for INFECTIONS W SEXL 09:27:00 AM Steve ephs infections with a MODE OF TRANSMISS EDT Medical predominantly sexual Cent er mode of transmission Z12.31 Encounter for ENCNTR SCREEN Diagnosis 11/07/2019 [facility] screening mammogram MAMMOGRAM FOR 09:27:00 [facility] malignant MALIGNANT NEOPLASM EDT Med ical neoplasm of breast OF BREAST Center Z23 Encounter for ENCOUNTER FOR Diagnosis 11/07/2019 [facility] immunization IMMUNIZATION 09:27:00 AM [facility] J45.20 Mild intermittent MILD INTERMITTENT Diagnosis 11/07/2019 [facility] asthma, ASTHMA, 09:27:00 AM [facility] uncomplicated UNCOMPLICATED [facility] N92.6 Irregular IRREGULAR Diagnosis 11/07/2019 [facility] menstruation, MENSTRUATION, 09:27:00 AM [facility] unspecified UNSPECIFIED [facility] Z00.01 Encounter for ENCOUNTER FOR Diagnosis 11/07/2019 [facility] general adult GENERAL ADULT 09:27:00 AM [facility] medical examination MEDICAL EXAM W EDT M edical with abnormal ABNORMAL FINDINGS Cent er findings Z71.3 Dietary counseling DIETARY COUNSELING Diagnosis 0 [facility] and surveillance AND SURVEILLANCE [facility]:14[facility]00 [facility] Z71.9 Counseling, COUNSELING, Diagnosis 05/03/2019 [facility] unspecified UNSPECIFIED 02:14:00 PM [facility] J45.909 Unspecified asthma, UNSPECIFIED ASTHMA, Diagnosis 020 [facility] uncomplicated UNCOMPLICATED 02:14:00 PM [facility] Surgeries/Procedures Procedure Description Date Indications Data Source(s) Well Visit, Est,40-64years 11/07/2019 N EXTGEN ([facility] 12:00:00 AM EDT [facility] 11/07/2019 [place]) 12:00:00 AM EDT ROUTINE VENIPUNCTURE 11/07/2019 NEXTGEN ([facility] 12:00:00 AM EDT [facility] 11/07/2019 [place]) 12:00:00 AM EDT Influenza, Injectable, 3 11/07/2019 NEX TGEN ([facility] Yrs Or Older 12:00:00 AM EDT [facility] - 11/07/2019 [place]) 12:00:00 AM EDT Immunization 11/07/2019 NEXTGEN ([facility] Administration 12:00:[address] [facility] dical - 11/07/2019 [place]) 12:00:00 AM EDT OFFICE/OUTPATIENT VISIT, 05/03/2019 NEX TGEN ([facility] EST 12:00:00 AM EDT [facility] - 05/03/2019 [place]) 12:00:00 AM EDT Results ID Date Data Source Liver 11/07/2019 10:55:[address] [facility] Profile.[id number] Name Value Range Interpretation Description Data Sup porting Code Source(s) Document(s ) Albumin 3.5-5.0 <content Saint [Mass/volume] in styleCode="Bold"> [facility] Serum or Plasma Albumin Medical </content>4.0 Center G/DL<content styleCode="Italic s"> (3.5-5.0 G/DL)</content> Bilirubin.total 0.2-1.3 <content [facility] [Mass/volume] in styleCode="Bold"> Flo hs Serum or Plasma Bilirubin Total Medical </content>0.4 Center MG/DL<content styleCode="Italic s"> (0.2-1.3 MG/DL)</content> Aspartate 14-36 <content [facility] aminotransferase styleCode="Bold"> Flo hs [Enzymatic Aspartate Medical activity/volume] Aminotransferase Center in Serum or Plasma (AST) </content>24 IU/L<content styleCode="Italic s"> (14-36 IU/L)</content> Alanine 7-30 <content [facility] aminotransferase styleCode="Bold"> Flo hs [Enzymatic Alanine Medical activity/volume] Aminotransferase Center in Serum or Plasma (ALT) </content>20 IU/L<content styleCode="Italic s"> (7-30 IU/L)</content> Alkaline 38-126 <content [facility] phosphatase styleCode="Bold"> Daniel [Enzymatic Alkaline Medical activity/volume] Phosphatase (ALP) Cente r in Serum or Plasma </content>74 IU/L<content styleCode="Italic s"> (38-126 IU/L)</content> ID Date Data Source LIPID.[id number] 11/07/2019 10:55:00 AM EDT [facility] Name Value Range Interpretation Description Data Sup porting Code Source(s) Document(s ) Cholesterol -<200 <content Saint [Mass/volume] in styleCode="Oswaldo Daniel Serum or Plasma d">Cholesterol Medical </content>164 Center MG/DL<content styleCode="Nuvia lics"> (-<200 MG/DL)</conten t> Triglyceride < 150 <content Saint [Mass/volume] in styleCode="Oswaldo Daniel Serum or Plasma d">Triglycerid [facility] </content>102 MG/DL<content styleCode="Nuvia lics"> (< 150 MG/DL)</conten t> UNK > 60 Below low normal <content Saint styleCode="Oswaldo Daniel d">HDL- Medical Cholesterol Center </content>48 MG/DL L<content styleCode="Nuvia lics"> (> 60 MG/DL)</conten t> UNK < 100 <content Saint styleCode="Oswaldo Daniel d">LDL-[facility] jia Center </content>96 MG/DL<content styleCode="Nuvia lics"> (< 100 MG/DL)</conten t> ID Date Data Source [id number] 11/07/2019 10:55:00 AM EDT [facility] Name Value Range Interpretation Description Data Sup porting Code Source(s) Document(s ) Thyrotropin 0.465-4. <content Saint [Units/volume] 68 styleCode="Oswaldo Daniel in Serum or d">Thyroid Medical Plasma by Stimulating Center Detection Hormone limit <= 0.05 </content>1.16 mIU/L MIU/L<content styleCode="Nuvia lics"> (0.465-4.68 MIU/L)</conten t> ID Date Data Source HematologyRou.[id number] 11/07/2019 10:55:00 AM EDT [facility] 0400 Name Value Range Interpretation Description Data Sup porting Code Source(s) Document(s ) Erythrocytes 4.0-5.1 <content Saint [#/volume] in styleCode="Bold Daniel Blood by ">Red Blood Medical Automated count Cell Count Center </content>4.35 MCUMM<content styleCode="Ital ics"> (4.0-5.1 MCUMM)</content > Leukocytes 4.4-11.0 <content Saint [#/volume] in styleCode="Bold Daniel Blood by ">White Blood Medical Automated count Cell Count Center </content>5.50 KCUMM<content styleCode="Ital ics"> (4.4-11.0 KCUMM)</content > Hematocrit 36.0-46. <content Saint [Volume 0 styleCode="Bold Daniel Fraction] of ">Hematocrit Medical Blood by </content>42.0 Center Automated count %<content styleCode="Ital ics"> (36.0-46.0 %)</content> Hemoglobin 12.3-16. <content Saint [Mass/volume] in 0 styleCode="Bold Daniel Blood ">Hemoglobin Medical </content>13.9 Center G/DL<content styleCode="Ital ics"> (12.3-16.0 G/DL)</content> Erythrocyte mean 26.0-34. <content Saint corpuscular 0 styleCode="Bold Daniel hemoglobin ">Mean Medical [Entitic mass] Corposcular Center by Automated Hemoglobin count </content>32.0 PG<content styleCode="Ital ics"> (26.0-34.0 PG)</content> Erythrocyte mean 80.0-100 <content Saint corpuscular .0 styleCode="Bold Daniel volume [Entitic ">Mean Medical volume] by Corpuscular Center Automated count Volume </content>96.6 FL<content styleCode="Ital ics"> (80.0-100.0 FL)</content> Erythrocyte 11.5-14. <content Saint distribution 5 styleCode="Bold Daniel width [Ratio] by ">Red Cell Medical Automated count Distribution Center Width </content>12.2 %<content styleCode="Ital ics"> (11.5-14.5 %)</content> Platelets 130-400 <content Saint [#/volume] in styleCode="Bold Daniel Blood by ">Platelet Medical Automated count Count Center </content>191 KCUMM<content styleCode="Ital ics"> (130-400 KCUMM)</content > Erythrocyte mean 32.0-37. <content Saint corpuscular 0 styleCode="Bold Daniel hemoglobin ">Mean Corpus. Medical concentration Hgb Center [Mass/volume] by Concentration Automated count (MCHC) </content>33.1 G/DL<content styleCode="Ital ics"> (32.0-37.0 G/DL)</content> Platelet mean 8.0-11.0 Above high <content Saint volume [Entitic normal styleCode="Bold Daniel volume] in Blood ">Mean Platelet Medical by Automated Volume Center count </content>12.8 FL H<content styleCode="Ital ics"> (8.0-11.0 FL)</content> Neutrophils 36-66 Above high <content Saint [#/volume] in normal styleCode="Bold Daniel Blood by ">Neutrophil Medical Automated count </content>69.8 Center % H<content styleCode="Ital ics"> (36-66 %)</content> Lymphocytes 24.0-44. Below low normal <content Saint [#/volume] in 0 styleCode="Bold Daniel Blood by ">Lymphocyte Medical Automated count </content>21.3 Center % L<content styleCode="Ital ics"> (24.0-44.0 %)</content> UNK 1.6-7.3 <content Saint styleCode="Bold Daniel ">Neutrophil Medical Count Center </content>3.84 KCUMM<content styleCode="Ital ics"> (1.6-7.3 KCUMM)</content > UNK 1.0-4.8 <content Saint styleCode="Bold Daniel ">Lymphocyte Medical Count Center </content>1.17 KCUMM<content styleCode="Ital ics"> (1.0-4.8 KCUMM)</content > Basophils 0.0-1.0 <content Saint [#/volume] in styleCode="Bold Daniel Blood by ">Basophil Medical Automated count </content>0.5 Center %<content styleCode="Ital ics"> (0.0-1.0 %)</content> UNK 0.0-0.6 <content Saint styleCode="Bold Daniel ">Eosinophil Medical Count Center </content>0.08 KCUMM<content styleCode="Ital ics"> (0.0-0.6 KCUMM)</content > Eosinophils 0-5.0 <content Saint [#/volume] in styleCode="Bold Daniel Blood by ">Eosinophil Medical Automated count </content>1.5 Center %<content styleCode="Ital ics"> (0-5.0 %)</content> Monocytes 3.0-10.0 <content Saint [#/volume] in styleCode="Bold Daniel Blood by ">Monocyte Medical Automated count </content>6.5 Center %<content styleCode="Ital ics"> (3.0-10.0 %)</content> UNK 0.2-0.9 <content Saint styleCode="Bold Daniel ">Monocyte Medical Count Center </content>0.36 KCUMM<content styleCode="Ital ics"> (0.2-0.9 KCUMM)</content > UNK < 1 <content Saint styleCode="Bold Daniel ">Immature Medical Granulocyte Center Ratio </content>0.4 %<content styleCode="Ital ics"> (< 1 %)</content> UNK 0.0-0.3 <content Saint styleCode="Bold Daniel ">Basophil Medical Count Center </content>0.03 KCUMM<content styleCode="Ital ics"> (0.0-0.3 KCUMM)</content > UNK 0 <content [facility] styleCode="Bold Daniel ">Nucleated Red Medical Blood Cell Center </content>0.0 /100<content styleCode="Ital ics"> (0 /100)</content> UNK 0-0.1 <content [facility] styleCode="Bold Daniel ">Immature Medical Granulocyte Center Count </content>0.02 KCUMM<content styleCode="Ital ics"> (0-0.1 KCUMM)</content > UNK 0.0 <content [facility] styleCode="Bold Daniel ">Nucleated Red Medical Blood Cell Center Count </content>0.00 KCUMM<content styleCode="Ital ics"> (0.0 KCUMM)</content > ID Date Data Source GFR(Creatinine).[id number] 11/07/2019 10:55:00 AM EDT [facility] 0-0400 Name Value Range Interpretation Code Description Data Charisse rce(s) Supporting Document(s ) UNK > 60 <content [facility] styleCode="Bold"> Medical Cent er EGFR </content>96 GFR<content styleCode="Italic s"> (> 60 GFR)</content> ID Date Data Source MROUTINECCDA.[id number] 11/07/2019 10:55:00 AM EDT [facility] -0400 Name Value Range Interpretation Description Data Sup porting Code Source(s) Document(s ) UNK 2.3-3.5 <content [facility] styleCode="Bold Medical ">Globulin Center </content>3.2 G/DL<content styleCode="Ital ics"> (2.3-3.5 G/DL)</content> UNK >= 1.0 <content [facility] styleCode="Bold Medical ">AG Ratio Center </content>1.2 <content styleCode="Ital ics"> (>= 1.0 )</content> Protein 6.3-8.2 <content [facility] [Mass/volum styleCode="Bold Medical e] in Serum ">Total Protein Center or Plasma </content>7.2 G/DL<content styleCode="Ital ics"> (6.3-8.2 G/DL)</content> ID Date Data Source [facility].[id number] 11/07/2019 10:55:00 AM EDT [facility] Name Value Range Interpretation Description Data Sup porting Code Source(s) Document(s ) Sodium 137-145 <content [facility] [Moles/volume] in styleCode="Bold"> [facility] Serum or Plasma Sodium Medical </content>138 Center MEQ/L<content styleCode="Italic s"> (137-145 MEQ/L)</content> Chloride 98-107 <content [facility] [Moles/volume] in styleCode="Bold"> [facility] Serum or Plasma Chloride Medical </content>107 Center MEQ/L<content styleCode="Italic s"> (98-107 MEQ/L)</content> Carbon dioxide, 22-30 <content [facility] total styleCode="Bold"> Daniel [Moles/volume] in Carbon Dioxide Medical Serum or Plasma </content>26 Center MEQ/L<content styleCode="Italic s"> (22-30 MEQ/L)</content> UNK 7-17 <content [facility] styleCode="Bold"> Daniel BUN </content>12 Medical MG/DL<content Center styleCode="Italic s"> (7-17 MG/DL)</content> Creatinine 0.5-1.3 <content [facility] [Mass/volume] in styleCode="Bold"> Flo hs Serum or Plasma Creatinine Medical </content>0.7 Center MG/DL<content styleCode="Italic s"> (0.5-1.3 MG/DL)</content> Glucose 74-106 <content [facility] [Mass/volume] in styleCode="Bold"> Flo hs Serum or Plasma Glucose Medical </content>87 Center MG/DL<content styleCode="Italic s"> (74-106 MG/DL)</content> Potassium 3.5-5.3 <content [facility] [Moles/volume] in styleCode="Bold"> [facility] Serum or Plasma Potassium Medical </content>4.5 Center MEQ/L<content styleCode="Italic s"> (3.5-5.3 MEQ/L)</content> Alkaline 38-126 <content [facility] phosphatase styleCode="Bold"> Daniel [Enzymatic Alkaline Medical activity/volume] Phosphatase (ALP) Cente r in Serum or Plasma </content>74 IU/L<content styleCode="Italic s"> (38-126 IU/L)</content> Calcium 8.4-10. <content [facility] [Mass/volume] in 2 styleCode="Bold"> Flo hs Serum or Plasma Calcium Medical </content>9.0 Center MG/DL<content styleCode="Italic s"> (8.4-10.2 MG/DL)</content> Alanine 7-30 <content [facility] aminotransferase styleCode="Bold"> Flo hs [Enzymatic Alanine Medical activity/volume] Aminotransferase Center in Serum or Plasma (ALT) </content>20 IU/L<content styleCode="Italic s"> (7-30 IU/L)</content> Bilirubin.total 0.2-1.3 <content [facility] [Mass/volume] in styleCode="Bold"> Flo hs Serum or Plasma Bilirubin Total Medical </content>0.4 Center MG/DL<content styleCode="Italic s"> (0.2-1.3 MG/DL)</content> Aspartate 14-36 <content [facility] aminotransferase styleCode="Bold"> Flo hs [Enzymatic Aspartate Medical activity/volume] Aminotransferase Center in Serum or Plasma (AST) </content>24 IU/L<content styleCode="Italic s"> (14-36 IU/L)</content> UNK > 60 <content [facility] styleCode="Bold"> Daniel EGFR </content>96 Medical GFR<content Center styleCode="Italic s"> (> 60 GFR)</content> Albumin 3.5-5.0 <content [facility] [Mass/volume] in styleCode="Bold"> Flo hs Serum or Plasma Albumin Medical </content>4.0 Center G/DL<content styleCode="Italic s"> (3.5-5.0 G/DL)</content> Procedure Social History Code Duration Value Status Description Data Source(s ) Caffeine Use 11/07/2019 coffee, 2 completed coffee, 2 cups NEXTGEN ([facility] Details 12:00:00 AM EDT cups [facility]) 11/07/2019 Current completed Current NEXTGEN ([facility] 12:00:00 AM EDT non-smoker non-smoker [facility]) Smoking 11/07/2019 Never smoker completed Never smoker NEXTGEN (S aint 12:00:00 AM T [facility]) Caffeine Use 07/09/2019 completed NEXTGEN (Fabian nt Details 12:00:00 AM [facility]) Vital Signs ID Date Data Source UNK Name Value Range Interpretation Code Description Data Source(s) Diastolic blood 95 mm[Hg] 95 mm[Hg] NEXTGEN ( [facility]) Systolic blood 141 mm[Hg] 141 mm[Hg] NEXTGEN (S nt [facility]) Oxygen saturation 100 % 100 % NEXTGEN ([facility] in Arterial blood [facility] by Pulse oximetry Center) Body mass index 28.13 kg/m2 Overweight 28.13 kg/m2 NEXTGEN ([facility] (BMI) [Ratio] [facility]) Respiratory rate 20 /min 20 /min NEXTGEN ([facility]) Body temperature 36.83 Nataly 36.83 Nataly NEXTGEN ([facility]) Heart rate 69 /min 69 /min NEXTGEN ([facility]) Diastolic blood 96 mm[Hg] 96 mm[Hg] NEXTGEN ( [facility]) Systolic blood 149 mm[Hg] 149 mm[Hg] NEXTGEN (S nt [facility]) Body weight 69.763 kg 69.763 kg NEXTGEN ([facility]) Body height 157.48 cm 157.48 cm [facility]) Oxygen saturation 100 % 100 % NEXTGEN ([facility] in Arterial [facility] by Pulse oximetry Center) Body mass index 27.80 kg/m2 Overweight 27.80 kg/m2 NEXTGEN ([facility] (BMI) [Ratio] [facility]) Respiratory rate 20 /min 20 /min [facility] ([facility]) Heart rate 70 /min 70 /min [facility]) Diastolic blood 83 mm[Hg] 83 mm[Hg] NEXTGEN ( [facility]) Systolic blood 134 mm[Hg] 134 mm[Hg] NEXTGEN (S aint pressure [facility]) Body weight 68.946 kg 68.946 kg NEXTGEN ([facility]) Body height 157.48 cm 157.48 cm NEXTGEN ([facility]) Patient Treatment Plan of Care Planned Activity Planned Date Details Description Data Source (s) Chlorthalidone 25 MG Oral 11/07/2019 12:00:00 NEXTGEN ([facility] Tablet [facility]) Chlorthalidone 25 MG Oral 11/07/2019 12:00:00 NEXTGEN ([facility] Tablet [facility]) Sertraline 25 MG Oral 11/07/2019 12:00:00 NEXTGEN ([facility] Tablet [facility]) 120 ACTUAT Fluticasone 05/30/2019 12:00:00 NEXTGEN ([facility] propionate 0.11 MG/ACTUAT AM [facility] Medical Metered Dose Inhaler Center) [Flovent] 200 ACTUAT Albuterol 0.09 05/03/2019 12:00:00 NEXTGEN ([facility] MG/ACTUAT Metered Dose AM EDT [facility] Medical Inhaler [Ventolin] [place]) 120 ACTUAT Fluticasone 04/27/2018 12:00:00 NEXTGEN ([facility] propionate 0.11 MG/ACTUAT AM T [facility] Medical Metered Dose Inhaler Center) [Flovent] 200 ACTUAT Albuterol 0.09 04/27/2018 12:00:00 NEXTGEN ([facility] MG/ACTUAT Metered Dose AM EDT [facility] Medical Inhaler [Ventolin] [place]) Propranolol Hydrochloride NE XTGEN ([facility] 40 MG Oral Tablet [facility])
[2019-12-01] MEDS ORDERED: ACETAMINOPHEN/CAFFEINE/BUTALBITAL 1 TAB PO ONE (09:27)
--- NOTE | 2019-12-01 09:27 | PDOC ---
History of Present Illness - General Chief Complaint: Headache Stated Complaint: HEADACHE/CHILLS Time Seen by Provider: 12/01/19 09:14 History Source: Patient Exam Limitations: Clinical Condition - History of Present Illness Initial Comments: 12/01/19 09:30 Patient with past medical history hypertension controlled with meds present with complaint of 2 weeks history of nasal congestion, intermittent dry cough and frontal headaches with body aches. Patient reports seeing PCP a week ago for symptoms and she was advised her symptoms likely from allergies. Denies fever, nausea, vomiting, dizziness, blurry vision or change in vision. Denies recent travel or sick contact. Patient report taking Aleve for headache with some relief. Denies any other symptoms Is this a multiple visit Asthma Patient?: No Timing/Duration: other (2 weeks) Past History - Medical History Allergies/Adverse Reactions: Allergies Allergy/AdvReac Type Severity Reaction Status Date / Time latex Allergy Verified 12/01/19 09:02 Home Medications: Ambulatory Orders Propranolol HCl 40 mg PO DAILY 01/06/19 Oseltamivir Phosphate [Tamiflu] 75 mg PO BID #10 capsule 03/21/19 Ipratropium [place] 2 spray NS BID PRN #1 spray 12/01/19 Methylprednisolone [Medrol Dose Johny] 4 mg PO ASDIR #21 tablet 12/01/19 Montelukast Na [Singulair -] 10 mg PO DAILY #10 tablet 12/01/19 Asthma: Yes COPD: No DVT: No HTN: Yes Kidney Stones: Yes - Surgical History Abdominal Surgery: Yes (TUBAL LIGATION,HERNIA REAPR X2,LAP BAND) Cholecystectomy: Yes - Reproductive History Is Patient Now?: No - Immunization History Immunization Up to Date: No - Psycho-Social/Smoking History Smoking History: Never smoked Have you smoked in the past 12 months: No Number of Cigarettes Smoked Daily: 0 Review of Systems - Review of Systems Able to Perform ROS?: Yes Is the patient limited Angolan proficient: No Constitutional: No: Chills, Fever, Malaise HEENTM: Yes: Symptoms Reported, See HPI, Nose Congestion. No: Eye Pain, Blurred Vision, Tearing, Recent change in vision, Double Vision, Cataracts, Ear Pain, Ocular Prothesis, Ear Discharge, Nose Pain, Tinnitus, Nose Bleeding, Hearing Loss, Throat Pain, Throat Swelling, Mouth Pain, Dental Problems, Difficulty Swallowing, Mouth Swelling, Other Respiratory: Yes: Symptoms reported, See HPI, Cough (intermittent). No: Orthopnea, Shortness of Breath, SOB with Exertion, SOB at Rest, Stridor, Wheezing, Productive cough, Hemoptysis, Other Cardiac (ROS): No: Symptoms Reported, See HPI, Chest Pain, Edema, Irregular Heart Rate, Lightheadedness, Palpitations, Syncope, Chest Tightness, Other ABD/GI: No: Symptoms Reported, Nausea, Vomiting Musculoskeletal: No: Symptoms Reported Integumentary: No: Symptoms Reported, Rash Neurological: Yes: Symptoms reported, See HPI, Headache (frontal headache). No: Weakness, Dizziness All Other Systems: Reviewed and Negative *Physical Exam - Vital Signs Last Vital Signs Temp Pulse Resp BP Pulse Ox 98.4 F 90 18 134/89 99 12/01/19 08:57 12/01/19 08:57 12/01/19 08:57 12/01/19 08:57 12/01/19 08:57 - Physical Exam 12/01/19 09:34 GENERAL: Well developed, well nourished. Awake and alert. No acute distress. HEENT: Bilateral nasal congestion. Normocephalic, atraumatic. PERRLA, EOMI. No conjunctival pallor. Sclera are non-icteric. Moist mucous membranes. Oropharynx is clear. NECK: Supple. Full ROM. CARDIOVASCULAR: Regular rate and rhythm. No murmurs, rubs, or gallops. PULMONARY: No evidence of respiratory distress. Lungs clear to auscultation bilaterally. No wheezing, rales or rhonchi. ABDOMINAL: Soft. Non-tender. Non-distended. No rebound or guarding. No organomegaly. Normoactive bowel sounds. MUSCULOSKELETAL Normal range of motion at all joints. SKIN: Warm and dry. Normal capillary refill. No rashes. No jaundice. No cyanosis NEUROLOGICAL: Alert, awake, appropriate. Gait is normal without ataxia. PSYCHIATRIC: Cooperative. Good eye contact. Appropriate mood General Appearance: Yes: Nourished, Appropriately Dressed. No: Apparent Distress Medical Decision Making - Medical Decision Making 12/01/19 09:31 Patient with past medical history hypertension controlled with meds present with complaint of 2 weeks history of nasal congestion, intermittent dry cough and frontal headaches with body aches. Patient reports seeing PCP a week ago for symptoms and she was advised her symptoms likely from allergies. Denies fever, nausea, vomiting, dizziness, blurry vision or change in vision. Denies recent travel or sick contact. Patient report taking Aleve for headache with some relief. Denies any other symptoms Clinical exam unremarkable except bilateral nasal congestion and some frontal sinus subjective tenderness. Normal cardio and lung exam. Patient afebrile. Normal neuro exam. Patient with no acute distress. Patient walking with normal gait. Symptoms likely viral cold symptoms with sinus headache. Covid test ordered to rule out Covid. Fioricet 1 tab given for headache. Patient stable for discharge on Medrol pack for sinus congestion with URI and Atrovent nasal spray Singulair for nasal congestion with advised to increase fluid intake and follow-up with PCP Discharge - Discharge Information Problems reviewed: Yes Clinical Impression/Diagnosis: URI, acute, Sinus headache Sinusitis nasal Qualifiers: Sinusitis location: frontal Chronicity: acute Recurrence: non-recurrent Qualified Code(s): J01.10 - Acute frontal sinusitis, unspecified Condition: Stable Disposition: HOME - Admission No - Additional Discharge Information Prescriptions: Ipratropium [place] 2 spray NS BID PRN #1 spray PRN Reason: nasal congestion Methylprednisolone [Medrol Dose Johny] 4 mg PO ASDIR #21 tablet Montelukast Na [Singulair -] 10 mg PO DAILY #10 tablet - Follow up/Referral Referrals: Kim Villavicencio [Primary Care Provider] - - Patient Discharge Instructions Patient Printed Discharge Instructions: DI for Sinus Headache Additional Instructions: Your head is likely caused by sinus headache. Take prescribed medication as prescribed for headache and congestion. Increase fluid intake. Follow-up with your primary care as needed. You will be contacted tomorrow or Monday latest for Covid result - Post Discharge Activity Work/Back to School Note: Back to Work
[2019-12-01] MEDS ORDERED: ACETAMINOPHEN/CAFFEINE/BUTALBITAL 1 TAB ONE (09:29)
== END 2019-12-01 09:38 | disposition home or self-care (01) ==
LOC: JER 08:55
DX: J01.10 Acute frontal sinusitis, unspecified (principal); J06.9 Acute upper respiratory infection, unspecified; J32.9 Chronic sinusitis, unspecified
CPT/HCPCS: 99283-25; C9803; U0003